=== PATIENT | female | born 1980 | race Caucasian/White ===

== ENCOUNTER 2016-11-30 20:46 | Emergency (ER) | payer MEDICARE, MEDICAID ==
[2016-11-30] MEDS ORDERED: ORPHENADRINE CITRATE 60 MG/2ML ONE (21:15)
[2016-11-30] MEDS ORDERED: ORPHENADRINE CITRATE 60 MG/2ML IM ONE (21:17)
--- NOTE | 2016-11-30 21:52 | ED Physician Documentation ---
General Adult - HISTORIAN Historian: patient, friend - HPI Stated Complaint: back pain Chief Complaint: General Adult Additional Information: mid dorsal back kpain no lifting or trauma--has chronic back kpoain-states exaberation today Onset: days ago (`1) Timing: still present Severity: moderate - ROS CONST: no problems EYES/ENT: none CVS/RESP: none GI/: none MS/SKIN/LYMPH: none NEURO/PSYCH: denies: headache, fainting - PAST HX Past History: other (chronic backpain headaches depression) Surgeries/Procedures: other (back gb hyster) Allergies/Adverse Reactions: Allergies Allergy/AdvReac Type Severity Reaction Status Date / Time Sulfa (Sulfonamide Allergy Verified 11/30/16 21:09 Antibiotics) steroids Allergy Uncoded 11/30/16 21:09 Home Medications: Ambulatory Orders Medication Instructions Recorded traMADol HCL [Ultram] 50 mg PO Q6H PRN #10 tablet 06/08/15 Amitriptyline HCl [Elavil] 25 mg PO HS 11/30/16 Diazepam [Valium] 5 mg PO BID PRN 11/30/16 Estradiol [Estrace] 1 mg PO DAILY 11/30/16 Gabapentin [Neurontin] 600 mg PO [id number] 11/30/16 HYDROcodone /APAP 5/325 [[place] 1 tab PO Q4 PRN 11/30/16 5/325] Sertraline HCl [Zoloft] 150 mg PO DAILY 11/30/16 - SOCIAL HX Smoking History: greater than 1 pack/day Alcohol Use: none Drug Use: none - FAMILY HX Family History: No - VITAL SIGNS Vital Signs: Vital Signs Temp Pulse Resp BP Pulse Ox 95/43 06/08/15 20:08 - REVIEWED ASSESSMENTS Nursing Assessment Reviewed: Yes Vitals Reviewed: Yes ED Results Lab/Radiology - Orders Orders: ED Orders Category Date Time Status Orphenadrine Citrate [Norflex] Med 11/30/16 21:15 Discontinued 60 mg .ROUTE .STK-MED ONE Orphenadrine Citrate [Norflex] Med 11/30/16 21:17 Discontinued 60 mg IM NOW ONE General Adult Physical Exam - PHYSICAL EXAM GENERAL APPEARANCE: moderate distress EENT: eye inspection normal NECK: normal inspection RESPIRATORY: no resp distress, chest non-tender, breath sounds normal CVS: reg rate & rhythm, heart sounds normal ABDOMEN: soft, non-tender BACK: CVA tenderness (R), CVA tenderness (L) SKIN: warm/dry, normal color. No: cyanosis, diaphoresis, jaundice EXTREMITIES: non-tender, normal range of motion NEURO: oriented X3 Discharge Clincal Impression: exaberation chronic back pain Referrals: Josephine Lemon MD [Primary Care Provider] - 2 Days Home Medications: Ambulatory Orders traMADol HCL [Ultram] 50 mg PO Q6H PRN #10 tablet 06/08/15 Amitriptyline HCl [Elavil] 25 mg PO HS 11/30/16 Diazepam [Valium] 5 mg PO BID PRN 11/30/16 Estradiol [Estrace] 1 mg PO DAILY 11/30/16 Gabapentin [Neurontin] 600 mg PO [id number] 11/30/16 HYDROcodone /APAP 5/325 [[place] 5/325] 1 tab PO Q4 PRN 11/30/16 Sertraline HCl [Zoloft] 150 mg PO DAILY 11/30/16 Comments: pt req leigh dank has had several prev refills---will give musc relaxants and have pt see pcp for norco Condition: Good Decision to Admit: NO Decision Time: 21:51
[2016-11-30 22:11] VITALS: BP 125/74
== END 2016-11-30 21:52 ==
LOC: ED 20:46
DX: M54.9 Dorsalgia, unspecified (principal); G89.29 Other chronic pain
CPT/HCPCS: J2360 ×2; 96372; 99283

== ENCOUNTER 2017-01-23 19:34 | Emergency (ER) | payer MEDICARE, OTHER ==
--- NOTE | 2017-01-23 19:53 | ED Physician Documentation ---
General Adult - HPI Stated Complaint: neck pain Chief Complaint: General Adult Additional Information: Pain began mid left arm yesterday. Now is in madrigal of head, down left neck, upper arm. Took 10 mg valium, and a [place] this afternoon. Chronic back pain, but never had this before. Denies injury, new pillow, new activity, new mattress. - ROS CONST: no problems - PAST HX Past History: other (chronic back pain, kidney stone, anxiety) Surgeries/Procedures: cholecystectomy, other (spine stimulator, in and out) Allergies/Adverse Reactions: Allergies Allergy/AdvReac Type Severity Reaction Status Date / Time Sulfa (Sulfonamide Allergy Severe Throat Verified 01/23/17 19:49 Antibiotics) Swelling Home Medications: Ambulatory Orders Medication Instructions Recorded traMADol HCL [Ultram] 50 mg PO Q6H PRN #10 tablet 06/08/15 Amitriptyline HCl [Elavil] 25 mg PO HS 11/30/16 Diazepam [Valium] 5 mg PO BID PRN 11/30/16 Estradiol [Estrace] 1 mg PO DAILY 11/30/16 Gabapentin [Neurontin] 600 mg PO [id number] 11/30/16 HYDROcodone /APAP 5/325 [[place] 1 tab PO Q4 PRN 11/30/16 5/325] Methocarbamol [Robaxin-750] 750 mg PO QID #30 tablet 11/30/16 Sertraline HCl [Zoloft] 150 mg PO DAILY 11/30/16 - SOCIAL HX Smoking History: cigarettes - FAMILY HX Family History: No - VITAL SIGNS Vital Signs: Vital Signs Temp Pulse Resp BP Pulse Ox 125/74 11/30/16 21:52 - REVIEWED ASSESSMENTS Nursing Assessment Reviewed: Yes Vitals Reviewed: Yes Progress - Progress Progress: Explained she had taken as much medicine as she could, with the exceptio nof toradol She indicated understanding. ED Results Lab/Radiology - Orders Orders: ED Orders Category Date Time Status Ketorolac Tromethamine [Toradol] Med 01/23/17 19:50 Once 60 mg IM NOW ONE General Adult Physical Exam - PHYSICAL EXAM GENERAL APPEARANCE: moderate distress (holds herself in rigid erect posture.) EENT: eye inspection normal, ENT inspection normal, pharynx normal NECK: normal inspection, other (left cervica lparaspinous muscles in spasm, tender to palpation) RESPIRATORY: no resp distress, breath sounds normal CVS: reg rate & rhythm, heart sounds normal RECTAL: deferred BACK: normal inspection, other (left trap spasm, tender to touch) EXTREMITIES: normal range of motion (gait, stance), no evidence of injury NEURO: CN's nml as tested, motor nml, sensation nml Discharge Clincal Impression: Trapezius muscle spasm Referrals: Josephine Lemon MD [Primary Care Provider] - 2 Days Additional Instructions: Heat to the sore muscles several times a day, followed by gentle motion and stretching. Movement is important to ease muscles in spasm. You can also massage the sore areas several times a day. This may hurt more at first, but will help the muscles to relax. You can take 1000 mg tylenol every 8 hours. You can also take 600 mg ibuprofen with food every 8 hours. Home Medications: Ambulatory Orders traMADol HCL [Ultram] 50 mg PO Q6H PRN #10 tablet 06/08/15 Amitriptyline HCl [Elavil] 25 mg PO HS 11/30/16 Diazepam [Valium] 5 mg PO BID PRN 11/30/16 Estradiol [Estrace] 1 mg PO DAILY 11/30/16 Gabapentin [Neurontin] 600 mg PO [id number] 11/30/16 HYDROcodone /APAP 5/325 [[place] 5/325] 1 tab PO Q4 PRN 11/30/16 Methocarbamol [Robaxin-750] 750 mg PO QID #30 tablet 11/30/16 Sertraline HCl [Zoloft] 150 mg PO DAILY 11/30/16 Condition: Good Disposition: 01 HOME, SELF-CARE Decision to Admit: NO Decision Time: 20:00
[2017-01-23 20:01] VITALS: BP 126/73
[2017-01-23] MEDS: KETOROLAC TROMETHAMINE 60 MG/2 ML VIAL IM ONE (20:03)
== END 2017-01-23 20:06 | disposition home or self-care (01) ==
LOC: ED 19:34
DX: M62.830 Muscle spasm of back (principal)
CPT/HCPCS: 96372; 99283; J1885

== ENCOUNTER 2017-09-04 07:39 | Emergency (ER) | payer MEDICARE, OTHER ==
[2017-09-04 08:00] VITALS: BP 127/47
--- NOTE | 2017-09-04 08:14 | ED Physician Documentation ---
General Adult - HISTORIAN Historian: patient, friend - HPI Stated Complaint: L shoulder, L hip pain Chief Complaint: General Adult Additional Information: lt shoulder and lt lhip pain-gianni hx of exaberations such-on disability for low back pain. has had surgery lt l5/s1-on disability since. takes chronic narcotics - oncontract w/ DR HOPKINS. pt states she took tramadol and [id number] this am w/ min relief Onset: days ago (1-2) Timing: still present, worse Severity: moderate Further Comments: yes (has sreccurrent pain this side but no injuries or known etiol and no recent trauma) - ROS CONST: no problems EYES/ENT: none CVS/RESP: none GI/: none MS/SKIN/LYMPH: joint pain, back pain. denies: neck pain, leg swelling, rash, swollen glands, ankle swelling NEURO/PSYCH: headache - PAST HX Past History: other (chroic backk pain-narcotic user w/ contract w/pcp) Surgeries/Procedures: other (hyster L-5/s-1) Allergies/Adverse Reactions: Allergies Allergy/AdvReac Type Severity Reaction Status Date / Time Sulfa (Sulfonamide Allergy Severe Throat Verified 09/04/17 08:08 Antibiotics) Swelling Home Medications: Ambulatory Orders Medication Instructions Recorded Amitriptyline HCl [Elavil] 100 mg PO HS 11/30/16 Diazepam [Valium] 5 mg PO BID PRN 11/30/16 Estradiol [Estrace] 1 mg PO DAILY 11/30/16 HYDROcodone /APAP 5/325 [[place] 1 tab PO Q4 PRN 11/30/16 5/325] traMADol HCL [Ultram] 100 mg PO Q6H PRN 01/23/17 Orphenadrine Citrate [Norflex] 100 mg PO 12HS #25 tab 09/04/17 - SOCIAL HX Smoking History: cigarettes Alcohol Use: none Drug Use: none - FAMILY HX Family History: No - VITAL SIGNS Vital Signs: Vital Signs Temp Pulse Resp BP Pulse Ox 97.9 F 88 18 127/47 95 09/04/17 07:54 09/04/17 07:54 09/04/17 07:54 09/04/17 07:54 09/04/17 07:54 - REVIEWED ASSESSMENTS Nursing Assessment Reviewed: Yes Vitals Reviewed: Yes ED Results Lab/Radiology - Radiology Radiology Impressions: no acute findings either pelvis hip or shoulder-will give pt copies for future reference3 - Orders Orders: ED Orders Category Date Time Status PELVIS AP 1 OR 2 VIEWS [RAD] Stat Exams 09/04/17 Ordered SHOULDER 2 VIEWS OR MORE [RAD] Stat Exams 09/04/17 Ordered General Adult Physical Exam - PHYSICAL EXAM GENERAL APPEARANCE: mild distress EENT: eye inspection normal NECK: normal inspection RESPIRATORY: no resp distress, breath sounds normal CVS: reg rate & rhythm, heart sounds normal ABDOMEN: soft, non-tender BACK: normal inspection, CVA tenderness (L) ( pretty much from a/o to l-5 on lt) SKIN: warm/dry, normal color. No: cyanosis, diaphoresis EXTREMITIES: non-tender, normal range of motion NEURO: oriented X3, CN's nml as tested, motor nml, sensation nml, mood/affect nml Discharge Clincal Impression: exaberation chronic back pain Prescriptions: Orphenadrine Citrate [Norflex] 100 mg PO 12HS #25 tab Referrals: Josephine Lemon MD [Primary Care Provider] - 2 Days Comments: meds f/u w/pcp Condition: Good Disposition: 01 HOME, SELF-CARE Decision to Admit: NO Decision Time: 09:12
--- NOTE | 2017-09-05 06:40 | Diagnostic Imaging Report ---
TOOTIE MAHAN [facility] [address] [facility] [address] [address] Report Submission Date: Sep 04, 2017 8:43:41 AM CDT Patient Study Name: MOLLY COATES Date: Sep 04, 2017 8:23:41 AM CDT Modality Type: DX Gender: F Description: PELVIS : 80 Institution: [facility] Physician: TOOTIE MAHAN Left hip with AP pelvis, 3 images History: Hip pain Findings: The osseous, joint and soft tissue structures are normal. Impression: Normal. Electronically signed on Sep 04, 2017 8:43:41 AM CDT by: Will BOWEN
--- NOTE | 2017-09-05 06:40 | Diagnostic Imaging Report ---
TOOTIE MAHAN [facility] [address] Counts Include [address] At [facility] [address] [address] Report Submission Date: Sep 04, 2017 8:42:56 AM CDT Patient Study Name: MOLLY COATES Date: Sep 04, 2017 8:17:22 AM CDT Modality Type: DX Gender: F Description: SHOULDER : 80 Institution: [facility] Physician: TOOTIE MAHAN Left shoulder, 3 views History: Shoulder pain Findings: The osseous, joints and soft tissue structures are normal. Impression: Normal. Electronically signed on Sep 04, 2017 8:42:56 AM CDT by: Will BOWEN
== END 2017-09-04 09:13 | disposition home or self-care (01) ==
LOC: ED 07:39
DX: M54.5 Low back pain (principal); M25.512 Pain in left shoulder
CPT/HCPCS: 72170; 73030; 99283